=== PATIENT | female | born 1990 | race Caucasian/White ===

== ENCOUNTER 2019-07-08 15:36 | Inpatient (IN) | payer MEDICAID ==
[2019-07-08 16:42] LABS: APPEARANCE,URINE CLEAR; BILIRUBIN,URINE NEGATIVE (NEGATIVE); COLOR,URINE YELLOW; GLUCOSE, URINE >=500 mg/dL (NEGATIVE); KETONES,URINE NEGATIVE (NEGATIVE); LEUKOCYTE ESTERASE,URINE TRACE (NEGATIVE); NITRITE,URINE NEGATIVE (NEGATIVE); PROTEIN,URINE NEGATIVE (NEGATIVE); UROBILINOGEN,URINE NEGATIVE mg/dL (<2.0)
[2019-07-08 17:06] LABS: URINE AMPHETAMINES SCREEN NEGATIVE; URINE BARBITURATES SCREEN NEGATIVE; URINE BENZODIAZEPINES SCREEN NEGATIVE; URINE COCAINE SCREEN NEGATIVE; URINE MARIJUANA (THC) SCREEN NEGATIVE; URINE METHADONE SCREEN NEGATIVE; URINE PHENCYCLIDINE SCREEN NEGATIVE
[2019-07-08 20:03] LABS: HEMATOCRIT 34.6 % (36.0-47.0); HEMOGLOBIN 12.2 g/dL (12.0-15.5); MEAN CORPUSCULAR HGB CONC 35.4 g/dL (32.0-36.0); MEAN CORPUSCULAR VOLUME 85 fl (80-97); PLATELET COUNT 255 10^3/uL (150-450); RED BLOOD COUNT 4.09 10^6/uL (3.72-5.28); RED CELL DISTRIBUTION WIDTH 13.1 % (11.5-14.0); WHITE BLOOD COUNT 15.3 10^3/uL (4.0-10.5)
[2019-07-08 20:35] LABS: ABSOLUTE LYMPHOCYTES# (MANUAL) 3.2 10^3/uL (0.5-4.7); ABSOLUTE MONOCYTES # (MANUAL) 1.4 10^3/uL (0.1-1.4); BAND NEUTROPHILS % (MANUAL) 1 % (3-5); BASOPHILS % (MANUAL) 0 % (0-2); EOSINOPHILS % (MANUAL) 2 % (0-6); LYMPHOCYTES % (MANUAL) 21 % (13-45); MONOCYTES % (MANUAL) 9 % (3-13); RBC MORPHOLOGY COMMENT NORMO-CYTIC/CHROMIC; SEGMENTED NEUTROPHILS % (MAN) 67 % (42-78); TOTAL CELLS COUNTED 100
[2019-07-08 20:36] LABS: PLATELET COMMENT ADEQUATE
[2019-07-08] MEDS ORDERED: RINGERS SOLUTION,LACTATED 1,000 ML IV PRN (23:16)
[2019-07-08] MEDS ORDERED: RINGERS SOLUTION,LACTATED 1,000 ML IV ONE (23:16)
[2019-07-08] MEDS ORDERED: OXYTOCIN 10 UNIT/ML VIAL ONE (23:17)
[2019-07-08] MEDS ORDERED: OXYTOCIN/NORMAL SALINE 1,000 ML IV PRN (23:17)
[2019-07-08] MEDS ORDERED: MISOPROSTOL 0.2 MG TABLET ONE (23:17)
[2019-07-08] MEDS ORDERED: LIDOCAINE 1% INJ-PF (10 MG/ML) 30 ML SDV ONE (23:18)
[2019-07-08] MEDS ORDERED: OXYTOCIN/NORMAL SALINE 20 UNIT/1,000 ML RTUINJ ONE (23:18)
[2019-07-08] MEDS ORDERED: OXYTOCIN/NORMAL SALINE 20 UNIT/1,000 ML RTUINJ IV PRN (23:30)
[2019-07-09] MEDS ORDERED: FENTANYL/BUPIVACAINE/NS/PF 300 MCG/150 ML RTUINJ EPI ONE (00:27)
[2019-07-09] MEDS ORDERED: EPHEDRINE SULFATE INJ 50 MG/1 ML AMPULE ONE (00:27)
[2019-07-09] MEDS ORDERED: BUPIVACAINE HCL 0.25 % INJ/PF (2.5 MG/1 ML) 30 ML VIAL ONE (00:28)
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
[2019-07-09] MEDS ORDERED: DIPH/PERTUSS(ACELL)/TETANUS VAC/PF 0.5 ML SYR (>=10YO) IM PRN (04:05)
[2019-07-09] MEDS ORDERED: ZOLPIDEM TARTRATE 5 MG TABLET PO PRN (04:05)
[2019-07-09] MEDS ORDERED: PROMETHAZINE HCL 25 MG SUPP.RECT PR PRN (04:05)
[2019-07-09] MEDS ORDERED: PROMETHAZINE HCL 25 MG TABLET PO PRN (04:05)
[2019-07-09] MEDS ORDERED: ACETAMINOPHEN 325 MG TABLET PO PRN (04:05)
[2019-07-09] MEDS ORDERED: PROMETHAZINE HCL INJ 25 MG/1 ML VIAL IV PRN (04:05)
[2019-07-09] MEDS ORDERED: OXYTOCIN/NORMAL SALINE 20 UNIT/1,000 ML RTUINJ IV PRN (04:05)
[2019-07-09] MEDS ORDERED: ACETAMINOPHEN WITH CODEINE #3 TABLET PO PRN ×2 (04:05)
[2019-07-09] MEDS ORDERED: MISOPROSTOL 0.2 MG TABLET PR PRN (04:05)
[2019-07-09] MEDS ORDERED: BENZOCAINE/MENTHOL AEROSOL SPRAY 56 ML TOP PRN (04:05)
[2019-07-09] MEDS ORDERED: GLYCERIN/WITCH HAZEL LEAF 1 EACH MED..WIPE TP PRN (04:05)
[2019-07-09] MEDS ORDERED: NA PHOS,M-B/NA PHOS,DI-BA (ADULT) 133 ML ENEMA PR PRN (04:05)
[2019-07-09] MEDS ORDERED: MAGNESIUM HYDROXIDE SUSP 30 ML UDCUP PO PRN (04:05)
[2019-07-09] MEDS ORDERED: PSEUDOEPHEDRINE HCL 30 MG TABLET PO PRN (04:05)
[2019-07-09] MEDS ORDERED: DIBUCAINE 1% OINTMENT 28 GM TP PRN (04:05)
[2019-07-09] MEDS ORDERED: MEASLES,MUMPS&RUBELLA VACC/PF 0.5 ML VIAL SUBCUT PRN (04:05)
[2019-07-09] MEDS ORDERED: DIPHENHYDRAMINE HCL 25 MG CAPSULE PO PRN (04:05)
[2019-07-09] MEDS ORDERED: IBUPROFEN 800 MG TABLET ONE (06:12)
[2019-07-09] MEDS: IBUPROFEN 800 MG TABLET PO SCH ×3 (06:14→21:38)
[2019-07-09] MEDS: SENNOSIDES/DOCUSATE 8.6-50 MG 1 EACH TABLET PO SCH (09:52)
[2019-07-09] MEDS: DOCUSATE SODIUM 100 MG CAPSULE PO SCH ×2 (09:52→17:42)
[2019-07-09] MEDS: PRENATAL VITAMIN W DHA CAPSULE PO SCH (09:52)
[2019-07-09] MEDS: FAMOTIDINE 20 MG TABLET PO SCH ×2 (09:52→21:38)
[2019-07-09] MEDS: FERROUS SULFATE 325 MG TABLET PO SCH ×2 (09:52→17:42)
--- NOTE | 2019-07-09 17:45 | PDOC PROGRESS REPORT ---
Subjective-OB Progress Note for:: 07/09/19 Subjective: 28yo G2 now P1 s/p day 1. Pt ambulating and voiding without difficulty. Pain well controlled with medications. No concerns today Physical Exam (OB) Vital Signs: Temp Pulse Resp BP Pulse Ox 97.9 F 73 17 97/56 L 100 07/09/19 09:13 07/09/19 09:13 07/09/19 09:13 07/09/19 09:13 07/09/19 09:13 Intake & Output 07/08/19 07/09/19 07/10/19 06:59 06:59 06:59 Intake Total 600 Balance 600 Weight 86 kg - General General Appearance: Appears well In distress: None - Episiotomy/Laceration Site Condition: N/A - Lochia Lochia Amount: Scant < 10 ml Lochia Color: Rubra/Red - Abdomen Description: Soft Fundal Description: Firm, Midline Fundal Height: u/u - u/2 - Respiratory Respiratory Status: No respiratory distress - Extremities Upper extremity: Normal inspection Lower extremities: Normal inspection - Neurological Cognition: Normal Orientation: AAOx4 - Psychological Associated symptoms: Normal affect, Normal mood Objective-Diagnostic Laboratory: 07/08/19 19:38 07/08/19 07/08/19 19:38 19:38 WBC 15.3 H RBC 4.09 Hgb 12.2 Hct 34.6 L MCV 85 MCH 30.0 MCHC 35.4 RDW 13.1 Plt Count 255 Seg Neutrophils % Not Reportable Blood Type A POSITIVE Antibody Screen NEGATIVE Assessment and Plan(PN) - Assessment and Plan (1) History of depression Is this a current diagnosis for this admission?: Yes Plan: denies current s/s. Denies h/s ideation, Discharge planning placed. Will need f/u appt in 1-2weeks (2) History of smoking Is this a current diagnosis for this admission?: Yes Plan: quit with (3) Vaginal delivery Is this a current diagnosis for this admission?: Yes Plan: routine pp care (4) Active labor at term Is this a current diagnosis for this admission?: Yes Plan: delivered - Time Spent with Patient Time with patient: Less than 15 minutes Medications reviewed and adjusted accordingly: Yes - Disposition Anticipated Discharge: Home Within: within 24 hours
--- NOTE | 2019-07-09 20:35 | Delivery Summary ---
Del Sum A-C Datetime Report Generated by CPN: 07/09/2019 20:34 DELIVERY PERSONNEL DELIVERY PERSONNEL: [id number] Delivery Doctor:: Aleida El MD Labor and Delivery Nurse:: Heavenly Roberson RN Dispute Coordinator:: Joie Duarte RN Hand Glass Cutter/MBA INTERNSHIP: Zhane Ross, ST MATERNAL INFORMATION Delivery Anesthesia: Epidural Medications After Delivery: Pitocin Bolus-Please Comment Meds After Delivery Comment: Pitocin 20 units/1000 ml NSS cv Estimated Blood Loss (ml): 50 Delivery QBL: 50 Delivery QBL Comment: 50 delivery 59 recovery total 109 Maternal Complications: None Provider Comments: VMI delivered in SUMI presentation with tight nuchal cord delivered through. Shoulders and body delivered without difficulty. Cord doubly clamped and cut. Shoulders and body delivered without difficulty. Placenta delivered intact spontaneously. FF at U. No perineal lacerations. Mother and baby stable upon provider leaving the room. LABOR SUMMARY EDC: 07/09/2019 00:00 No. Babies in Womb: 1 Attempted: No Labor Anesthesia: Epidural LABOR INFORMATION Reason for Induction: Not Applicable Onset of Labor: 07/09/2019 00:14 Complete Dilatation: 07/09/2019 03:10 Oxytocin: Augmentation Group B Beta Strep: negative Antibiotics # of Doses: 0 Steroids Given: None Reason Steroids Not Administered: Not Applicable MEMBRANES Membranes Rupture Method: Artificial Rupture of Membranes: 07/09/2019 03:20 Length of Rupture (hr): 0.05 Amniotic Fluid Color: Clear Amniotic Fluid Amount: Small STAGES OF LABOR Stage 1 hr: 2 Stage 1 min: 56 Stage 2 hr: 0 Stage 2 min: 13 Stage 3 hr: 0 Stage 3 min: 4 Total Time in Labor hr: 3 Total Time in Labor min: 13 VAGINAL DELIVERY Episiotomy: None Laceration #1: None Laceration Extension #1: N/A Laceration Repair: Not Applicable Sponge Count Correct: Yes Sharps Count Correct: Yes CSECTION DELIVERY Primary Indication: N/A Secondary Indication: N/A CSection Incidence: N/A Labor: N/A Elective: N/A CSection Incision: N/A BABY A INFORMATION Delivery Date/Time: 07/09/2019 03:23 Method of Delivery: Vaginal Nurse Controlled Delivery: No Born in Route : No : N/A Forceps: N/A Vacuum Extraction: N/A Shoulder Dystocia : No PRESENTATION/POSITION BABY A Presentation: Cephalic Cephalic Presentation: Vertex Vertex Position: Left Occipital Anterior Breech Presentation: N/A PLACENTA INFORMATION BABY A Placenta Delivery Time : 07/09/2019 03:27 Placenta Method of Delivery: Spontaneous Placenta Status: Delivered SCORES BABY A Heart Rate 1 min: >100 bpm Resp Effort 1 min: Slow, Irregular Reflex Irritability 1 min: Cough or Sneeze or Pulls Away Muscle Tone 1 min: Active Motion Color 1 min: Blue/Pale Resuscitation Effort 1 min: Tactile Stimulation SCORE 1 MIN: 7 Heart Rate 5 min: >100 bpm Resp Effort 5 min: Good Cry Reflex Irritability 5 min: Cough or Sneeze or Pulls Away Muscle Tone 5 min: Active Motion Color 5 min: Body [place], Extremities Blue Resuscitation Effort 5 min: Tactile Stimulation SCORE 5 MIN: 9 INFORMATION BABY A Gestational Age at Delivery: 40.0 Gestational Status: Full Term- 39- 40.6 Weeks Infant Outcome : Stillborn Infant Condition : Stable Sex: Male IDENTIFICATION BABY A Verification Date/Time: 07/09/2019 04:03 ID Band Number: [id number] Mother's Name Verified: Yes Infant RN Verifying Infant: Melida Smith, RN Additional Verifying Personnel: aBrbara Roberson RN WEIGHT/LENGTH BABY A Infant Birthweight (gm): 3491 Weight (lb): 7 Infant Weight (oz): 11 Length (in): 20.00 Infant Length (cm): 50.80 CORD INFORMATION BABY A No. Cord Vessels: 3 Nuchal Cord : Around Neck x1, Tight Cord Blood Taken: Yes-For Storage (Mom's Blood type +) Infant Suction: None ASSESSMENT BABY A Infant Complications: None Physical Findings at Delivery: Within Normal Limits Respirations: Appears Normal Skin to Skin: Yes Cellar Supervisor/ALS Called : No Care By: Barbara Roberson RN Transferred To: Remains with Mother SIGNATURES Signature: with User ID: [email or web address]
[2019-07-10] MEDS: IBUPROFEN 800 MG TABLET PO SCH ×3 (06:19→22:58)
[2019-07-10 06:53] LABS: HEMATOCRIT 35.7 % (36.0-47.0); HEMOGLOBIN 12.5 g/dL (12.0-15.5); MEAN CORPUSCULAR HEMOGLOBIN 30.2 pg (27.0-33.4); MEAN CORPUSCULAR HGB CONC 35.1 g/dL (32.0-36.0); MEAN CORPUSCULAR VOLUME 86 fl (80-97); PLATELET COUNT 228 10^3/uL (150-450); RED BLOOD COUNT 4.15 10^6/uL (3.72-5.28); RED CELL DISTRIBUTION WIDTH 13.2 % (11.5-14.0); WHITE BLOOD COUNT 14.7 10^3/uL (4.0-10.5)
[2019-07-10] MEDS: PRENATAL VITAMIN W DHA CAPSULE PO SCH (09:28)
[2019-07-10] MEDS: DOCUSATE SODIUM 100 MG CAPSULE PO SCH ×2 (09:29→17:44)
[2019-07-10] MEDS: FAMOTIDINE 20 MG TABLET PO SCH ×2 (09:29→22:58)
[2019-07-10] MEDS: FERROUS SULFATE 325 MG TABLET PO SCH ×2 (09:29→17:44)
[2019-07-10] MEDS: SENNOSIDES/DOCUSATE 8.6-50 MG 1 EACH TABLET PO SCH (09:29)
[2019-07-10] MEDS: FLUOXETINE HCL 20 MG CAPSULE PO SCH (09:30)
--- NOTE | 2019-07-10 10:26 | PDOC PROGRESS REPORT ---
Subjective-OB Progress Note for:: 07/10/19 Subjective: Pt doing well, no concerns. Reports light bleeding, reg diet and voiding without difficulty. Physical Exam (OB) Vital Signs: Temp Pulse Resp BP Pulse Ox 97.9 F 86 22 H 116/68 100 07/10/19 07:10 07/10/19 07:10 07/10/19 07:10 07/10/19 07:10 07/10/19 07:10 Intake & Output 07/09/19 07/10/19 07/11/19 06:59 06:59 06:59 Intake Total 600 Balance 600 Weight 86 kg - Lochia Lochia Amount: Scant < 10 ml Lochia Color: Rubra/Red - Abdomen Description: Soft, Round Hernia Present: No Fundal Description: Firm, Midline Fundal Height: u/u - u/2 Objective-Diagnostic Laboratory: 07/10/19 06:30 07/10/19 06:30 WBC 14.7 H RBC 4.15 Hgb 12.5 Hct 35.7 L MCV 86 MCH 30.2 MCHC 35.1 RDW 13.2 Plt Count 228 Assessment and Plan(PN) - Assessment and Plan (1) Active labor at term Is this a current diagnosis for this admission?: Yes (2) History of depression Is this a current diagnosis for this admission?: Yes (3) History of smoking Is this a current diagnosis for this admission?: Yes (4) Vaginal delivery Is this a current diagnosis for this admission?: Yes - Time Spent with Patient Time with patient: Less than 15 minutes Medications reviewed and adjusted accordingly: Yes - Disposition Anticipated Discharge: Home Within: within 24 hours
[2019-07-11 08:33] VITALS: BP 108/57
[2019-07-11] MEDS: SENNOSIDES/DOCUSATE 8.6-50 MG 1 EACH TABLET PO SCH (09:42)
[2019-07-11] MEDS: IBUPROFEN 800 MG TABLET PO SCH (09:42)
[2019-07-11] MEDS: FAMOTIDINE 20 MG TABLET PO SCH (09:42)
[2019-07-11] MEDS: FERROUS SULFATE 325 MG TABLET PO SCH (09:43)
[2019-07-11] MEDS: PRENATAL VITAMIN W DHA CAPSULE PO SCH (09:43)
[2019-07-11] MEDS: DOCUSATE SODIUM 100 MG CAPSULE PO SCH (09:43)
[2019-07-11] MEDS: FLUOXETINE HCL 20 MG CAPSULE PO SCH (09:43)
--- NOTE | 2019-07-11 11:21 | PDOC DISCHARGE SUMMARY ---
Impression - Admit/DC Date/PCP Admission Date/Primary Care Provider: 07/08/19 23:19 LEONARDO HUTCHINSON MD Discharge Date: 07/11/19 - Discharge Diagnosis (1) Active labor at term Is this a current diagnosis for this admission?: Yes (2) History of depression Is this a current diagnosis for this admission?: Yes (3) History of smoking Is this a current diagnosis for this admission?: Yes (4) Vaginal delivery Is this a current diagnosis for this admission?: Yes - Additional Information Discharge Diet: Regular Discharge Activity: Balance Activity w/Rest, Pelvic Rest [facility] [Provider [facility]] Prescriptions: Ibuprofen [Motrin 800 mg Tablet] 800 mg PO Q8HP PRN #60 tablet PRN Reason: Home Medications: Fluoxetine HCl [Prozac] 20 mg PO DAILY 07/08/19 Vits96/Iron Fum/Folic [ Tablet] 1 each PO DAILY 07/08/19 Ibuprofen [Motrin 800 mg Tablet] 800 mg PO Q8HP PRN #60 tablet 07/11/19 HPI Gestational Age: 39+6 Reason(s) for Admission: Onset of Labor Procedures: NST Intrapartum Procedure(s): Spontaneous Vaginal Delivery Results Laboratory Results: WBC 14.7 10^3/uL (4.0-10.5) H 07/10/19 06:30 RBC 4.15 10^6/uL (3.72-5.28) 07/10/19 06:30 Hgb 12.5 g/dL (12.0-15.5) 07/10/19 06:30 Hct 35.7 % (36.0-47.0) L 07/10/19 06:30 MCV 86 fl (80-97) 07/10/19 06:30 MCH 30.2 pg (27.0-33.4) 07/10/19 06:30 MCHC 35.1 g/dL (32.0-36.0) 07/10/19 06:30 RDW 13.2 % (11.5-14.0) 07/10/19 06:30 Plt Count 228 10^3/uL (150-450) 07/10/19 06:30 Lymph % (Auto) Not Reportable 07/08/19 19:38 [place] % (Auto) Not Reportable 07/08/19 19:38 Eos % (Auto) Not Reportable 07/08/19 19:38 Baso % (Auto) Not Reportable 07/08/19 19:38 Absolute Neuts (auto) Not Reportable 07/08/19 19:38 Absolute Lymphs (auto) Not Reportable 07/08/19 19:38 Absolute Monos (auto) Not Reportable 07/08/19 19:38 Absolute Eos (auto) Not Reportable 07/08/19 19:38 Absolute Basos (auto) Not Reportable 07/08/19 19:38 Total Counted 100 07/08/19 19:38 Seg Neutrophils % Not Reportable 07/08/19 19:38 Seg Neuts % (Manual) 67 % (42-78) 07/08/19 19:38 Band Neutrophils % 1 % (3-5) L 07/08/19 19:38 Lymphocytes % (Manual) 21 % (13-45) 07/08/19 19:38 Monocytes % (Manual) 9 % (3-13) 07/08/19 19:38 Eosinophils % (Manual) 2 % (0-6) 07/08/19 19:38 Basophils % (Manual) 0 % (0-2) 07/08/19 19:38 Abs Neuts (Manual) 10.4 10^3/uL (1.7-8.2) H 07/08/19 19:38 Abs Lymphs (Manual) 3.2 10^3/uL (0.5-4.7) 07/08/19 19:38 Abs Monocytes (Manual) 1.4 10^3/uL (0.1-1.4) 07/08/19 19:38 Absolute Eos (Manual) 0.3 10^3/uL (0.0-0.6) 07/08/19 19:38 Abs Basophils (Manual) 0.0 10^3/uL (0.0-0.2) 07/08/19 19:38 Platelet Comment ADEQUATE 07/08/19 19:38 RBC Morph Comment NORMO-CYTIC/CHROMIC 07/08/19 19:38 Urine Color YELLOW 07/08/19 16:00 Urine Appearance CLEAR 07/08/19 16:00 Urine pH 6.0 (5.0-9.0) 07/08/19 16:00 Ur Specific [place] 1.010 07/08/19 16:00 Urine Protein NEGATIVE mg/dL (NEGATIVE) 07/08/19 16:00 Urine Glucose (UA) >=500 mg/dL (NEGATIVE) H 07/08/19 16:00 Urine Ketones NEGATIVE mg/dL (NEGATIVE) 07/08/19 16:00 Urine Blood NEGATIVE (NEGATIVE) 07/08/19 16:00 Urine Nitrite NEGATIVE (NEGATIVE) 07/08/19 16:00 Urine Bilirubin NEGATIVE (NEGATIVE) 07/08/19 16:00 Urine Urobilinogen NEGATIVE mg/dL (<2.0) 07/08/19 16:00 Ur Leukocyte Esterase TRACE (NEGATIVE) H 07/08/19 16:00 Urine Ascorbic Acid 40 (NEGATIVE) H 07/08/19 16:00 Membranes Rupture NEGATIVE (NEGATIVE) 07/08/19 15:55 Urine Opiates Screen NEGATIVE 07/08/19 16:00 Urine Methadone Screen NEGATIVE 07/08/19 16:00 Ur Barbiturates Screen NEGATIVE 07/08/19 16:00 Ur Phencyclidine Scrn NEGATIVE 07/08/19 16:00 Ur Amphetamines Screen NEGATIVE 07/08/19 16:00 U Benzodiazepines Scrn NEGATIVE 07/08/19 16:00 Urine Cocaine Screen NEGATIVE 07/08/19 16:00 U Marijuana (THC) Screen NEGATIVE 07/08/19 16:00 RPR NONREACTIVE (NONREACTIVE) 07/08/19 19:38 Blood Type A POSITIVE 07/08/19 19:38 Antibody Screen NEGATIVE 07/08/19 19:38 Plan Plan of Treatment: follow up in 4 weeks at [facility] for post exam
== END 2019-07-11 13:10 | disposition home or self-care (01) | DRG 807 ==
LOC: LC 15:36 → LR 23:19 → 2N 07-09 08:01
PROVIDERS: ADMIT Student in an Organized Health Care Education/Training Program; ATTEND Student in an Organized Health Care Education/Training Program
PROC: 10E0XZZ Delivery of Products of Conception, External Approach (ICD-10-PCS; principal; 2019-07-09)
PROC: 10907ZC Drainage of Amniotic Fluid, Therapeutic from Products of Conception, Via Natural or Artificial Opening (ICD-10-PCS; 2019-07-09)
DX: O69.1XX0 Labor and delivery complicated by cord around neck, with compression, not applicable or unspecified (principal); Z37.0 Single live birth; O99.344 Other mental disorders complicating childbirth; F32.9 Major depressive disorder, single episode, unspecified; Z87.891 Personal history of nicotine dependence; Z91.5 Personal history of self-harm; Z3A.40 40 weeks gestation of pregnancy
CPT/HCPCS: 36415; 80307; 81005; 84112; 85025; 85027; 86592; 86850; 86900; 86901; J2590; J3010; J3490

== ENCOUNTER 2020-02-02 06:30 | Day surgery (SDC) | payer MEDICAID ==
[2020-01-28 11:39] LABS: HEMATOCRIT 41.1 % (36.0-47.0); HEMOGLOBIN 14.3 g/dL (12.0-15.5); MEAN CORPUSCULAR HEMOGLOBIN 29.8 pg (27.0-33.4); MEAN CORPUSCULAR HGB CONC 34.9 g/dL (32.0-36.0); MEAN CORPUSCULAR VOLUME 85 fl (80-97); PLATELET COUNT 344 10^3/uL (150-450); RED BLOOD COUNT 4.81 10^6/uL (3.72-5.28); RED CELL DISTRIBUTION WIDTH 12.9 % (11.5-14.0)
[2020-01-28 11:41] LABS: APPEARANCE,URINE CLEAR; BILIRUBIN,URINE NEGATIVE (NEGATIVE); COLOR,URINE STRAW; GLUCOSE, URINE NEGATIVE (NEGATIVE); KETONES,URINE NEGATIVE (NEGATIVE); LEUKOCYTE ESTERASE,URINE NEGATIVE (NEGATIVE); NITRITE,URINE NEGATIVE (NEGATIVE); PROTEIN,URINE NEGATIVE (NEGATIVE); URINE SPECIFIC GRAVITY 1.005; UROBILINOGEN,URINE NEGATIVE mg/dL (<2.0)
[~2020-02-02 06:30] MED LIST: FENTANYL CITRATE INJ/PF 100 MCG/2 ML AMPUL ONE; LACTATED RINGERS 1000 ML IV PRN; LIDOCAINE 0.5% INJ-PF (5 MG/ML) 50 ML SDV SUBCUT PRN; MIDAZOLAM 2 MG/2 ML INJ ONE; ONDANSETRON HCL INJ/PF 4 MG/2 ML SDV ONE; PROPOFOL INJ 200 MG/20 ML VIAL IV ONE; SUGAMMADEX SODIUM 200 MG/2 ML SDV IV ONE
[2020-02-02] MEDS ORDERED: PROMETHAZINE HCL INJ 25 MG/1 ML VIAL IV PRN ×2 (08:13)
[2020-02-02] MEDS ORDERED: DIPHENHYDRAMINE HCL 50 MG/ML VIAL IV PRN (08:13)
[2020-02-02] MEDS ORDERED: MORPHINE SULFATE 10 MG/ML INJ IV PRN (08:13)
[2020-02-02] MEDS ORDERED: ONDANSETRON HCL INJ/PF 4 MG/2 ML SDV IV PRN (08:13)
[2020-02-02] MEDS ORDERED: MEPERIDINE HCL/PF INJ 25 MG/1 ML DISP.SYRIN IV PRN (08:13)
[2020-02-02] MEDS ORDERED: FENTANYL CITRATE INJ/PF 100 MCG/2 ML AMPUL IV PRN ×3 (08:13)
[2020-02-02] MEDS ORDERED: KETOROLAC TROMETHAMINE INJ/PF 30 MG/1 ML SDV IV PRN (09:23)
[2020-02-02] MEDS ORDERED: RINGERS SOLUTION,LACTATED 1,000 ML IV PRN (09:23)
[2020-02-02] MEDS ORDERED: IBUPROFEN 800 MG TABLET PO PRN (09:23)
[2020-02-02] MEDS ORDERED: OXYCODONE-ACETAMINOPHEN 5-325 MG TABLET PO PRN ×2 (09:23)
--- NOTE | 2020-02-02 09:29 | Operative Report ---
Operative Report DATE OF SURGERY: 02/02/20 PREOPERATIVE DIAGNOSIS: Patient desires bilateral tubal cautery for sterilizati on POSTOPERATIVE DIAGNOSIS: Same OPERATION: Bilateral tubal cautery via laparoscopy SURGEON: VENKATA MAGAÑA ANESTHESIA: GA TISSUE REMOVED OR ALTERED: Fallopian tubes COMPLICATIONS: None ESTIMATED BLOOD LOSS: Minimal INTRAOPERATIVE FINDINGS: Normal uterus tubes and ovaries PROCEDURE: Patient was taken the OR and placed in supine position. General anesthesia was induced. She is placed in a dorsolithotomy position using Rodrigo stirrups. Her perineum abdomen vagina were prepared and draped in sterile fashion. Her bladder had been previously emptied as she voided right before the procedure. An incision was made the umbilicus. The natural umbilical defect was identified and dilated using a Rhonda clamp. The blunt port was placed. The abdomen was insufflated with CO2 gas. Laparoscopy revealed appropriate placement. Each tube which in turn was identified and followed out to its fimbriated end and then cauterized from the mid isthmic portion back toward the uterine cornu with 5 successive bites. Photos were taken but they did not print. At the end of the pre-procedure the skin scope was removed. The gas was allowed to escape from the abdomen. The blunt port was removed. The fascia at the umbilicus was closed with a 2-0 Vicryl stitch. The skin was closed with a 4-0 undyed Vicryl stitch. The sponge stick in the vagina was removed at the end of the case. Patient was brought out of anesthesia and taken recovery room in stable condition.
[2020-02-02] MEDS: FENTANYL CITRATE INJ/PF 100 MCG/2 ML AMPUL ONE ×2 (09:34→09:39)
--- NOTE | 2020-02-02 09:34 | Discharge Summary ---
Discharge Summary (SDC) - Discharge Final Diagnosis: Encounter for tubal ligation Date of Surgery: 02/02/20 Discharge Date: 02/02/20 Condition: Good Prescriptions: Oxycodone HCl/Acetaminophen [Percocet 5-325 mg Tablet] 1 tab PO Q4HP PRN #20 tablet PRN Reason: Ibuprofen [Motrin 800 mg Tablet] 800 mg PO Q8H PRN #30 tablet PRN Reason: Discharge Diet: Regular Discharge Activity: Pelvic Rest, Slowly Increase Activity Report the Following to Your Physician Immediately: Fever over 101 Degrees, Unusual Bleeding
[2020-02-02] MEDS ORDERED: KETOROLAC TROMETHAMINE INJ/PF 30 MG/1 ML SDV ONE (10:03)
[2020-02-02 16:41] VITALS: BP 103/65
[2020-02-02] MEDS ORDERED: SUCCINYLCHOLINE CHLORIDE INJ 200 MG/10 ML VIAL ONE (16:59)
[2020-02-02] MEDS ORDERED: VECURONIUM BROMIDE INJ 10 MG VIAL IV ONE (16:59)
[2020-02-02] MEDS ORDERED: ALBUTEROL SULFATE HFA (90 MCG/PUFF) 8 GM MDI IH ONE (16:59)
== END 2020-02-02 11:30 | disposition home or self-care (01) ==
LOC: OROUT 06:30
PROVIDERS: ATTEND Obstetrics & Gynecology
DX: Z30.2 Encounter for sterilization (principal); Z03.818 Encounter for observation for suspected exposure to other biological agents ruled out; J45.909 Unspecified asthma, uncomplicated; Z79.899 Other long term (current) drug therapy; Z87.891 Personal history of nicotine dependence
CPT/HCPCS: 36415; 85027; 87635; 81005; 81025; 58670; J2250; J3010; J3490 ×3; J1885; J0330; J2405; J2704; C9803